=== PATIENT | male | born 1970 | race Caucasian/White ===

== ENCOUNTER 2021-02-15 10:03 | Outpatient (CLI) | payer OTHER, SELFPAY ==
--- NOTE | 2021-02-15 | ECG_ITS ---
Measurements Intervals [place] Rate: 58 P: 25 TX: 158 QRS: 16 QRSD: 101 T: 31 QT: 403 QTc: 396 Interpretive Statements SINUS BRADYCARDIA DELAYED PRECORDIAL R/S TRANSITION BORDERLINE ECG Electronically Signed On 02-15-2021 10:40:01 CDT by Chavo Castillo D.O.
== END 2021-02-15 10:04 | disposition home or self-care (01) ==
PROVIDERS: PCP Emergency Medicine; Visit Provider Emergency Medicine
DX: R00.2 Palpitations (principal)
CPT/HCPCS: 93005

== ENCOUNTER 2021-02-22 14:35 | Outpatient (CLI) | payer OTHER, SELFPAY ==
--- NOTE | 2021-02-22 15:00 | ECHO_ITS ---
Patient Info Name: Ramiro Chang Age: 50 years : 1970 Gender: Male Ht: 67 in Wt: 220 lbs BSA: 2.21 m2 HR: 72 bpm BP: 133 / 87 mmHg Technical Quality: Fair Exam Date: 02/22/2021 2:43 PM Exam Location: [facility] Patient Status: Outpatient Admit Date: 02/22/2021 Staff Ordering Physician: Christopher Martinez MD Awning Craftsman: [place] Attending Provider: Christopher Martinez MD Referring Physician: Juan SWARTZ; Exam Type: CA echo doppler color flow Study Info Indications R00.2 - Palpitations Complete two-dimensional, color flow and Doppler transthoracic echocardiogram is performed. Summary 1. Complete two-dimensional, color flow and Doppler transthoracic echocardiogram is performed. 2. Left ventricular chamber dimension is normal. 3. Left ventricular systolic function is normal, estimated at 65-70%. 4. The left ventricular diastolic function is abnormal. 5. E/e' 10 is mildly elevated. 6. No pulmonary hypertension, estimated pulmonary arterial systolic pressure is 9 mmHg. Left Ventricle E/e' 10 is mildly elevated. Left ventricular chamber dimension is normal. Left ventricular systolic function is normal, estimated at 65-70%. The left ventricular diastolic function is abnormal. Right Ventricle Right ventricular chamber dimension is normal. Right ventricular systolic function is normal. Left Atria Left atrial chamber dimension is normal. Right Atria Right atrial chamber dimension is normal. Aortic Valve The aortic valve is trileaflet. There is no aortic valve stenosis. There is no aortic valve regurgitation. Pulmonic Valve There is no pulmonic regurgitation. Mitral Valve There is no mitral valve stenosis. There is no mitral valve regurgitation. Tricuspid Valve There is no tricuspid valve regurgitation. No pulmonary hypertension, estimated pulmonary arterial systolic pressure is 9 mmHg. Pericardium/Pleural There is no pericardial effusion. Inferior Vena Cava Normal inferior vena cava with >50% collapse upon inspiration consistent with normal right atrial pressure, 5 mmHg. Aorta The aortic root size at the sinus of Valsalva is normal. Left Ventricular Outflow Tract Name Value Normal LVOT 2D LVOT Diameter 2.7 cm LVOT Doppler LVOT Peak Gradient 4 mmHg LVOT Mean Gradient 3 mmHg LVOT VTI 27 cm LVOT VTI/AV VTI Ratio 1.3 LVOT Stroke Volume 157 ml LVOT CO 28.2 l/min LVOT CI 12.7 l/min/m2 Mitral Valve Name Value Normal MV Doppler MV Decel [place] 493 cm/s2 MV PHT 58 ms MV Area (PHT) 3.8 cm2 4.0-5.0 MV Di
== END 2021-02-22 14:36 | disposition home or self-care (01) ==
LOC: ANHCARD 14:35
PROVIDERS: PCP Emergency Medicine; Visit Provider Emergency Medicine
DX: R00.2 Palpitations (principal)
CPT/HCPCS: 93306

== ENCOUNTER 2022-11-13 08:58 | Outpatient (CLI) | payer OTHER, SELFPAY | END 2022-11-13 08:59 | disposition home or self-care (01) | LOC: ANHAUDIO 08:58 | PROVIDERS: PCP Emergency Medicine; Visit Provider Otolaryngology | DX: H93.12 Tinnitus, left ear (principal); H90.42 Sensorineural hearing loss, unilateral, left ear, with unrestricted hearing on the contralateral side | CPT/HCPCS: 92557; 92567 ==